=== PATIENT | female | born 1935 | race Caucasian/White ===

== ENCOUNTER 2024-08-03 11:12 | Inpatient (IN) ==
[2024-08-03 11:57] VITALS: BMI 20.5
[2024-08-03 12:13] LABS: BASOPHILS % (AUTO) 0.3 % (0.2-1.0); EOSINOPHILS % (AUTO) 0.2 % (0.9-2.9); HEMATOCRIT 35.2 % (36.0-47.0); HEMOGLOBIN 11.8 g/dL (12.0-16.0); LYMPHOCYTES # (AUTO) 0.5 X10^3/uL (1.3-2.9); LYMPHOCYTES % (AUTO) 3.8 % (21.0-51.0); MEAN CORPUSCULAR HEMOGLOBIN 29.3 pg (27.0-34.0); MEAN CORPUSCULAR HGB CONC 33.6 g/dL (33.0-35.0); MEAN CORPUSCULAR VOLUME 87.1 fL (80.0-100.0); MEAN PLATELET VOLUME 9.7 fL (7.4-11.0); MONOCYTES # (AUTO) 1.1 x10^3/uL (0.3-0.8); MONOCYTES % (AUTO) 8.2 % (0.0-13.0); NEUTROPHILS # (AUTO) 11.8 x10^3/uL (2.2-4.8); NEUTROPHILS % (AUTO) 87.5 % (42.0-75.0); PLATELET COUNT 217 X10^3/uL (150.0-450.0); RED BLOOD COUNT 4.04 X10^6/uL (3.5-5.4); RED CELL DISTRIBUTION WIDTH 14.4 % (11.6-16.5); WHITE BLOOD COUNT 13.5 X10^3/uL (3.6-10.0)
--- NOTE | 2024-08-03 12:32 | CT ---
EXAMINATION:BRAIN W/O CONHISTORY:frequent falls; .COMPARISON STUDY:None.TECHNIQUE:Images were obtained in brain and bone windows. The above CT scan was done with automated exposure control and the mA and kV was adjusted to obtain quality images according to patient size.FINDINGS:There is motion artifact. There is no acute intracranial hemorrhage, midline shift or edema present. There is atrophy and deep white matter ischemic change due to small vessel disease. Larry-white matter differentiation is maintained throughout. There are no intra-axial or extra-axial collections noted. .The sinuses are clear. The mastoid air cells are clear. There is no radiographic evidence of depressed skull fracture. Vascular calcification about the skull base.Hyperostosis frontalis interna.IMPRESSION:No acute intracranial process. 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 .THIS IS AN ELECTRONICALLY VERIFIED FINAL REPORT08/03/2024 12:28 PM - Electronically signed by Apolinar Monterroso MD
[2024-08-03 12:33] LABS: ALANINE AMINOTRANSFERASE 30 Units/L (12-78); ALBUMIN 1.7 g/dL (3.4-5.0); ALKALINE PHOSPHATASE 193 Units/L (46-116); ASPARTATE AMINO TRANSFERASE 69 Units/L (15-37); BLOOD UREA NITROGEN 56 mg/dL (7-18); CALCIUM 9.1 mg/dL (8.5-10.1); CARBON DIOXIDE 26.2 mmol/L (21-32); CHLORIDE 98 mmol/L (98-107); COR CA(FOR HYPOALB) 10.9 mg/dL (8.5-10.1); CREATININE 1.42 mg/dL (0.55-1.02); GLUCOSE 87 mg/dL (65-99); MAGNESIUM 2.6 mg/dL (2.0-2.9); POTASSIUM 5.2 mmol/L (3.5-5.1); SODIUM 132 mmol/L (136-145); TOTAL PROTEIN 6.6 g/dL (6.4-8.2); eGFR NON BLACK RACES 37 (>60)
--- NOTE | 2024-08-03 12:35 | DR.GENAD ---
HPI Time Seen Time Seen by Provider: 08/03/24 12:35 PCP Primary Care Physician: Leon martínez HPI Comment HPI Comment: Patient here with family members. Patient has been getting increasingly weak and stable over the last month. Has had difficulty eating or drinking. Patient had diarrhea about a week ago. She was seen by urologist Wednesday but was unable to make urine. Her blood pressure had been running a little low and was seen by PCP who sent her to the emergency room. Patient has been having some urinary frequency. No fever. Denies dysuria. Denies focal neurologic deficits. Complaint/Symptoms Chief Complaint:: Family states about a month ago she has gotten very weak and has had a increase in falls. Patient has not been eating or drinking very much. Patient also has had diarrhea for about a week now. Wednesday seen urologist was unable to urinate and her bp was low seen pcp this morning and was advised to come to the er. COVID-19 Coronavirus risk:travel/contact w/high risk person: No Has patient experienced Coronavirus symptoms: No Source History Provided: Patient Mode of Arrival Mode of Arrival: Wheelchair Timing Onset of Chief Complaint: 08/01/24 PMH PMH Past Medical History: Yes Past Medical History: Dementia, Dyslipidemia and Hypertension Past Surgical History: Yes Surgical History: Mastectomy and Ortho Surgery Past Surgical History Comment: back, blessnig knee replacement, tubes tied Family History History of Family Medical Conditions: Yes Family Medical History: Hypertension Social History Does patient currently use any type of tobacco product: No Have you used tobacco products in the last 12 months: No Type of Tobacco Use: None Does any household member use tobacco: No Alcohol Use: None Do you use any recreational Drugs:: No Lives With: Alone Lives Where: Home Travel Risk Coronavirus risk:travel/contact w/high risk person: No Has patient experienced Coronavirus symptoms: No Infectious screening In the last 2 months have you had wt loss of >10#?: NO Have you had fever, night sweats or hemotysis?: No Have you traveled outside the country in the last 6 months?: No Isolation: Standard ROS Review of Systems Constitutional: See HPI and Other (Patient slightly confused and history is questionable but possible baseline dementia.); negative Fever Eyes: No Symptoms Reported ENTM: No Symptoms Reported Respiratoy: No Symptoms Reported Cardiovascular: No Symptoms Reported Gastrointestinal/Abdominal: No Symptoms Reported and See HPI (Not eating or drinking well enough, possibly from slightly altered mental status.); negative Abdominal Pain, Constipation, Diarrhea, Nausea or Vomiting Genitourinary: See HPI and Frequency; negative Discharge, Dysuria, Hematuria, Pain or Bleeding Neurological: See HPI and Weakness (Generalized and not focal); negative Headache, Numbness, Paresthesia, Seizure, Tingling, Tremors or Dizziness Musculoskeletal: No Symptoms Reported Integumentary: No Symptoms Reported Hematologic/Lymphatic: No Symptoms Reported Endocrine: No Symptoms Reported Psychiatric: No Symptoms Reported All Other Systems: Reviewed and Negative PE Vital Signs Vitals: Vital Signs Temperature 98.8 F Pulse Rate 93 Pulse Rate 93 Pulse Rate 90 Pulse Rate 98 Pulse Rate 93 Pulse Rate 88 Pulse Rate 96 Pulse Rate 97 Pulse Rate 100 Pulse Rate 98 Pulse Rate 99 Respiratory Rate 22 Respiratory Rate 23 Respiratory Rate 25 Respiratory Rate 24 Respiratory Rate 17 Respiratory Rate 16 Respiratory Rate 33 Respiratory Rate 22 Respiratory Rate 30 Respiratory Rate 23 Respiratory Rate 15 Blood Pressure 126/86 Blood Pressure 112/70 Blood Pressure 107/71 Blood Pressure 125/68 Blood Pressure 114/73 O2 Sat by Pulse Oximetry 97 O2 Sat by Pulse Oximetry 91 O2 Sat by Pulse Oximetry 99 O2 Sat by Pulse Oximetry 97 O2 Sat by Pulse Oximetry 93 O2 Sat by Pulse Oximetry 98 O2 Sat by Pulse Oximetry 100 O2 Sat by Pulse Oximetry 97 General Limitations: No Limitations General Appearance: Alert, In No Apparent Distress and Other (Slightly confused but overall alert and oriented x 3) Head Head Exam: Normal Inspection Eyes Eye exam: Normal Appearance ENT ENT Exam: Normal Exam External Ear Exam: Normal External Inspection TM/Canal Exam: Bilateral: Normal Nose Exam: Normal Nose Exam Mouth Exam: Normal Inspection Throat Exam: Normal Inspection Neck Neck Exam: Normal Inspection Chest Chest Inspection: Normal Inspection Respiratory Respiratory Exam: Normal Lung Sounds Bilat Respiratory Exam: Bilateral: Clear to Auscultation Cardiovascular Cardiovascular Exam: Regular Rate and Normal Rhythm Abdominal Exam Abdominal Exam: Normal Inspection, Normal Bowel Sounds and Soft Extremities Extremities Exam: Normal Inspection Back Back Exam: Normal Inspection Neurologic Neurological Exam: Alert, Oriented X3, CN II-XII Intact and Reflexes Normal; negative Motor Sensory Deficit Psychiatric Psychiatric Exam: Normal Affect and Normal Mood Skin Skin Exam: Warm, Dry, Intact and Normal Color COURSE Treatment Treatment: Patient had some improvement during the stay with fluids and antibiotics. Patient still little weak and confused. Patient's daughters came in and stated that patient has been slightly more confused over the last 2 weeks but possible baseline mild dementia. Family states patient has not been eating or drinking very well and lives independently. They state they are unable to keep her at home and would prefer admission to the hospital discussed results of workup with patient and family. I suspect her symptoms are related to UTI on baseline dementia. Consultation Called: 15:10 Consultation Comments: Discussed case with Dr. Zepeda. He is agreeable to admission [facility] Labs Reviewed 08/03/24 12:05 08/03/24 12:05 Laboratory: WBC 13.5 X10^3/uL (3.6-10.0) H 08/03/24 12:05 RBC 4.04 X10^6/uL (3.5-5.4) 08/03/24 12:05 Hgb 11.8 g/dL (12.0-16.0) L 08/03/24 12:05 Hct 35.2 % (36.0-47.0) L 08/03/24 12:05 MCV 87.1 fL (80.0-100.0) 08/03/24 12:05 MCH 29.3 pg (27.0-34.0) 08/03/24 12:05 MCHC 33.6 g/dL (33.0-35.0) 08/03/24 12:05 RDW 14.4 % (11.6-16.5) 08/03/24 12:05 Plt Count 217 X10^3/uL (150.0-450.0) 08/03/24 12:05 MPV 9.7 fL (7.4-11.0) 08/03/24 12:05 Neut % (Auto) 87.5 % (42.0-75.0) H 08/03/24 12:05 Lymph % (Auto) 3.8 % (21.0-51.0) L 08/03/24 12:05 [place] % (Auto) 8.2 % (0.0-13.0) 08/03/24 12:05 Eos % (Auto) 0.2 % (0.9-2.9) L 08/03/24 12:05 Baso % (Auto) 0.3 % (0.2-1.0) 08/03/24 12:05 Neut # (Auto) 11.8 x10^3/uL (2.2-4.8) H 08/03/24 12:05 Lymph # (Auto) 0.5 X10^3/uL (1.3-2.9) L 08/03/24 12:05 [place] # (Auto) 1.1 x10^3/uL (0.3-0.8) H 08/03/24 12:05 Eos # (Auto) 0.0 x10^3/uL (0.0-0.2) 08/03/24 12:05 Baso # (Auto) 0.0 X10^3/uL (0.0-0.1) 08/03/24 12:05 Absolute Nucleated RBC 0.0 /100WBC 08/03/24 12:05 Sodium 132 mmol/L (136-145) L 08/03/24 12:05 Corrected Sodium TNP 08/03/24 12:05 Potassium 5.2 mmol/L (3.5-5.1) H 08/03/24 12:05 Chloride 98 mmol/L (98-107) 08/03/24 12:05 Carbon Dioxide 26.2 mmol/L (21-32) 08/03/24 12:05 BUN 56 mg/dL (7-18) H 08/03/24 12:05 Creatinine 1.42 mg/dL (0.55-1.02) H 08/03/24 12:05 Est GFR (MDRD) Af Amer 45 (>60) L 08/03/24 12:05 Est GFR (MDRD) Non-Af 37 (>60) L 08/03/24 12:05 Glucose 87 mg/dL (65-99) 08/03/24 12:05 Calcium 9.1 mg/dL (8.5-10.1) 08/03/24 12:05 Corrected Calcium 10.9 mg/dL (8.5-10.1) H 08/03/24 12:05 Magnesium 2.6 mg/dL (2.0-2.9) 08/03/24 12:05 Total Bilirubin 0.80 mg/dL (0.2-1.0) 08/03/24 12:05 AST 69 Units/L (15-37) H 08/03/24 12:05 ALT 30 Units/L (12-78) 08/03/24 12:05 Alkaline Phosphatase 193 Units/L (46-116) H 08/03/24 12:05 Troponin I High Sens 9.4 ng/L (4.0-60.0) 08/03/24 12:05 Total Protein 6.6 g/dL (6.4-8.2) 08/03/24 12:05 Albumin 1.7 g/dL (3.4-5.0) L 08/03/24 12:05 Globulin 4.9 g/dL (2.5-4.5) H 08/03/24 12:05 Albumin/Globulin Ratio 0.3 Ratio (1.1-2.1) L 08/03/24 12:05 Specimen Type Catherized urine 08/03/24 12:31 Urine Color Yellow (YELLOW) 08/03/24 12:31 Urine Appearance Hazy (CLEAR) 08/03/24 12:31 Urine pH 6.0 (5.0 - 8.0) 08/03/24 12:31 Ur Specific [place] 1.025 (1.000-1.030) 08/03/24 12:31 Urine Protein 3+ (NEGATIVE) 08/03/24 12:31 Urine Glucose (UA) Negative (NEGATIVE) 08/03/24 12:31 Urine Ketones Negative (NEGATIVE) 08/03/24 12:31 Urine Blood 5+ (NEGATIVE) 08/03/24 12:31 Urine Nitrite Negative (NEGATIVE) 08/03/24 12:31 Urine Bilirubin Negative (NEGATIVE) 08/03/24 12:31 Urine Urobilinogen Normal (NORMAL) 08/03/24 12:31 Ur Leukocyte Esterase 2+ (NEGATIVE) 08/03/24 12:31 Urine RBC 5-10 /HPF (0-3) A 08/03/24 12:31 Urine WBC 3-5 /HPF (0-5) 08/03/24 12:31 Ur Squamous Epith Cells Few /HPF (NEGATIVE) 08/03/24 12:31 Urine Bacteria 1+ /HPF (NEGATIVE) 08/03/24 12:31 Urine Yeast Few /HPF (NEGATIVE) 08/03/24 12:31 Ur Culture Indicated? No/not indicated 08/03/24 12:31 Opioid Opioid Risk Tool Age (Antoine box if 16-45): No History of Preadolescent Sexual Abuse: No Total: 0 Total Score Risk Category: Low Risk Copyright: [facility] predicting aberrant behaviors Discharge Plan Diagnosis Discharge Problem: Acute UTI, Physical deconditioning Altered mental status Qualifiers: Altered mental status type: unspecified Qualified Code(s): R41.82 - Altered mental status, unspecified Discharge Plan Patient Disposition: ADMITTED INPATIENT Condition: Stable Prescriptions: No Action cyanocobalamin (vitamin B-12) 1,000 mcg tablet extended release 1,000 mcg PO QDAY donepezil 5 mg tablet 2.5 mg PO DAILY divalproex 250 mg tablet,delayed release (DR/EC) 250 mg PO QDAY ciprofloxacin HCl 250 mg tablet 250 mg PO QDAY aspirin 81 mg tablet,delayed release (DR/EC) 81 mg PO QDAY simvastatin 40 mg tablet 40 mg PO QPM metoprolol tartrate 50 mg tablet 50 mg PO BID Xarelto 20 mg tablet 20 mg PO QDAY Gemtesa 75 mg tablet 75 mg PO QDAY phenazopyridine [Pyridium] 100 mg tablet 100 mg PO TID MDD tid Qty: 9 0RF Health Concerns: Post Hospitalization: new medications and changes needed to prevent readmission or further decline. Pt educated and given instructions on all concerns. Plan of Treatment: Continue with present treatment and follow up plan. Pt is to keep follow up appointment as instructed and take medications as ordered. Orders to Discharge Patient Discharge Orders: Transfer (Routine); Ordered 08/03/24 Ordered By: Ozzy Conde Follow ups/Referrals Follow ups/Referrals: SKYE MARTÍNEZ [Primary Care Provider] - 3 days Instructions Stand Alone Forms: Find Help Web Site, Post Hospital Follow Up Care
[2024-08-03] MEDS: NS 1,000 ML IV 1,000 ML IV ONE (12:40)
[2024-08-03 12:46] LABS: BILIRUBIN,URINE NEGATIVE (NEGATIVE); BLOOD/HEMOGLOBIN,URINE 5+ (NEGATIVE); GLUCOSE, URINE NEGATIVE (NEGATIVE); KETONES,URINE NEGATIVE (NEGATIVE); LEUKOCYTE ESTERASE ,URINE 2+ (NEGATIVE); NITRITES,URINE NEGATIVE (NEGATIVE); PROTEIN,URINE 3+ (NEGATIVE); UROBILINOGEN,URINE NORMAL (NORMAL)
[2024-08-03 12:50] LABS: APPEARANCE,URINE HAZY (CLEAR); BACTERIA,URINE 1+ /HPF (NEGATIVE); COLOR,URINE YELLOW (YELLOW); SQUAMOUS EPITHELIAL CELL,UR FEW /HPF (NEGATIVE); YEAST,URINE FEW /HPF (NEGATIVE)
[2024-08-03] MEDS: ROCEPHIN VIAL 1 GRAM IVP ONE (13:04)
[2024-08-03] MEDS: NS 1,000 ML IV 1,000 ML ONE (16:38)
[2024-08-03] MEDS: ROCEPHIN VIAL 1 GRAM ONE (16:38)
[2024-08-03] MEDS ORDERED: BUTT CREAM (COMPOUND) TOP PRN (16:40)
[2024-08-03] MEDS: NS 1,000 ML IV 1,000 ML IV SCH (16:58)
[2024-08-03] MEDS: CIPRO IV 400 MG PREMIX* 400 MG/200 ML IV.SOLN. IV SCH (21:03)
[2024-08-03] MEDS: ARICEPT TAB 5 MG PO SCH (21:06)
[2024-08-03] MEDS: LOPRESSOR TAB 50 MG PO SCH (21:07)
[2024-08-03] MEDS: DEPAKOTE D.R. TAB PO SCH (21:07)
[2024-08-03] MEDS: ZOCOR TAB 40 MG PO SCH (21:07)
[2024-08-04 06:50] LABS: BASOPHILS % (AUTO) 0.2 % (0.2-1.0); EOSINOPHILS % (AUTO) 0.4 % (0.9-2.9); HEMATOCRIT 34.4 % (36.0-47.0); HEMOGLOBIN 11.4 g/dL (12.0-16.0); LYMPHOCYTES # (AUTO) 0.5 X10^3/uL (1.3-2.9); LYMPHOCYTES % (AUTO) 3.9 % (21.0-51.0); MEAN CORPUSCULAR HGB CONC 33.2 g/dL (33.0-35.0); MEAN CORPUSCULAR VOLUME 87.2 fL (80.0-100.0); MEAN PLATELET VOLUME 9.3 fL (7.4-11.0); MONOCYTES # (AUTO) 0.9 x10^3/uL (0.3-0.8); MONOCYTES % (AUTO) 7.6 % (0.0-13.0); NEUTROPHILS # (AUTO) 10.4 x10^3/uL (2.2-4.8); NEUTROPHILS % (AUTO) 87.9 % (42.0-75.0); PLATELET COUNT 238 X10^3/uL (150.0-450.0); RED BLOOD COUNT 3.95 X10^6/uL (3.5-5.4); RED CELL DISTRIBUTION WIDTH 14.4 % (11.6-16.5); WHITE BLOOD COUNT 11.8 X10^3/uL (3.6-10.0)
[2024-08-04 07:05] LABS: ALANINE AMINOTRANSFERASE 29 Units/L (12-78); ALBUMIN 1.6 g/dL (3.4-5.0); ALKALINE PHOSPHATASE 188 Units/L (46-116); ASPARTATE AMINO TRANSFERASE 57 Units/L (15-37); BLOOD UREA NITROGEN 40 mg/dL (7-18); CALCIUM 8.5 mg/dL (8.5-10.1); CARBON DIOXIDE 24.2 mmol/L (21-32); CHLORIDE 100 mmol/L (98-107); COR CA(FOR HYPOALB) 10.4 mg/dL (8.5-10.1); CREATININE 0.95 mg/dL (0.55-1.02); GLUCOSE 70 mg/dL (65-99); POTASSIUM 4.1 mmol/L (3.5-5.1); SODIUM 133 mmol/L (136-145); TOTAL PROTEIN 6.3 g/dL (6.4-8.2); eGFR NON BLACK RACES 59 (>60)
[2024-08-04] MEDS: ASPIRIN EC 81 MG PO SCH (09:11)
[2024-08-04] MEDS: XARELTO PO SCH (09:11)
[2024-08-04] MEDS: VISBIOME PROBIOTIC CAP 112.5 B or equivalent PO SCH (09:11)
[2024-08-04] MEDS: PATIENT'S HOME MEDICATION (Vibegron [Gemtesa] 75 mg tablet) PO SCH (09:12)
--- NOTE | 2024-08-04 14:24 | DR.H&P ---
H&P History & Physical for Day of: H&P Date: 08/04/24 Chief Complaint Chief Complaint: UTI History of Present Illness History of Present Illness: Patient with worsening function over the last month. Daughter reports that she has had 3 falls over the last month with 2 this week. Couple of the falls occurred when trying to get into her bathroom which involves a step down. Brought to the ER for evaluation due to worsening mental status and weakness. Found to have an acute kidney injury, leukocytosis, mild tachycardia, and symptoms of UTI. She is currently on IV fluids and IV Cipro. Feels much better today but still weak in the legs. Physical therapy has evaluated her and they do not recommend her going home. Her and her daughters have agreed for her to go to subacute rehab. ROS: 12 point ROS otherwise negative. PE: Elderly female in no acute distress. Hearing intact conversation. Voice is soft but clear. Head NCAT. EOMI. Heart regular rate and rhythm. Lungs are clear. Belly is soft and nontender with bowel sounds present. Able to move all extremities but the legs are very weak even given her age. Past Medical History Past Medical History: Dementia, Dyslipidemia and Hypertension Past Surgical History Surgical History: Mastectomy and Ortho Surgery Family History Family Medical History: Hypertension Social History Does patient currently use any type of tobacco product: No Have you used tobacco products in the last 12 months: No Type of Tobacco Use: None Does any household member use tobacco: No Alcohol Use: None Drug Use: None Medications Home Medications: Home Medications Medication Instructions Recorded Confirmed Type cyanocobalamin (vitamin B-12) 1,000 mcg PO QDAY 03/17/24 08/03/24 History 1,000 mcg tablet,extended release divalproex 250 mg tablet,delayed 250 mg PO HS 03/17/24 08/03/24 History release donepezil 5 mg tablet 5 mg PO HS 03/17/24 08/03/24 History metoprolol tartrate 50 mg tablet 50 mg PO BID 03/17/24 08/03/24 History rivaroxaban 20 mg tablet (Xarelto) 20 mg PO QDAY 03/17/24 08/03/24 History simvastatin 40 mg tablet 40 mg PO QPM 03/17/24 08/03/24 History vibegron 75 mg tablet (Gemtesa) 75 mg PO QDAY 03/17/24 08/03/24 History aspirin 81 mg tablet,delayed 81 mg PO QDAY 08/03/24 08/03/24 History release ciprofloxacin HCl 250 mg tablet 250 mg PO QPM 08/03/24 08/03/24 History Allergies Allergies Allergy/AdvReac Type Severity Reaction Status Date / Time No Known Allergies Allergy Verified 08/03/24 11:25 Labs 08/04/24 06:28 08/04/24 06:28 Labs: 08/03/24 12:31 Urine,Clean Catch Urine Culture - Preliminary Laboratory WBC 11.8 X10^3/uL (3.6-10.0) H 08/04/24 06:28 RBC 3.95 X10^6/uL (3.5-5.4) 08/04/24 06: Hgb 11.4 g/dL (12.0-16.0) L 08/04/24 06:28 Hct 34.4 % (36.0-47.0) L 08/04/24 06:28 MCV 87.2 fL (80.0-100.0) 08/04/24 06:28 MCH 29.0 pg (27.0-34.0) 08/04/24 06:28 MCHC 33.2 g/dL (33.0-35.0) 08/04/24 06:28 RDW 14.4 % (11.6-16.5) 08/04/24 06: Plt Count 238 X10^3/uL (150.0-450.0) 08/04/24 06:28 MPV 9.3 fL (7.4-11.0) 08/04/24 06:28 Neut % (Auto) 87.9 % (42.0-75.0) H 08/04/24 06:28 Lymph % (Auto) 3.9 % (21.0-51.0) L 08/04/24 06: [place] % (Auto) 7.6 % (0.0-13.0) 08/04/24 06: Eos % (Auto) 0.4 % (0.9-2.9) L 08/04/24 06:28 Baso % (Auto) 0.2 % (0.2-1.0) 08/04/24 06:28 Neut # (Auto) 10.4 x10^3/uL (2.2-4.8) H 08/04/24 06:28 Lymph # (Auto) 0.5 X10^3/uL (1.3-2.9) L 08/04/24 06:28 [place] # (Auto) 0.9 x10^3/uL (0.3-0.8) H 08/04/24 06:28 Eos # (Auto) 0.0 x10^3/uL (0.0-0.2) 08/04/24 06:28 Baso # (Auto) 0.0 X10^3/uL (0.0-0.1) 08/04/24 06:28 Absolute Nucleated RBC 0.0 /100WBC 08/04/24 06:28 Sodium 133 mmol/L (136-145) L 08/04/24 06:28 Corrected Sodium TNP 08/04/24 06:28 Potassium 4.1 mmol/L (3.5-5.1) 08/04/24 06:28 Chloride 100 mmol/L (98-107) 08/04/24 06:28 Carbon Dioxide 24.2 mmol/L (21-32) 08/04/24 06:28 BUN 40 mg/dL (7-18) H 08/04/24 06:28 Creatinine 0.95 mg/dL (0.55-1.02) 08/04/24 06:28 Est GFR (MDRD) Af Amer > 60 (>60) 08/04/24 06:28 Est GFR (MDRD) Non-Af 59 (>60) 08/04/24 06:28 Glucose 70 mg/dL (65-99) 08/04/24 06:28 Calcium 8.5 mg/dL (8.5-10.1) 08/04/24 06:28 Corrected Calcium 10.4 mg/dL (8.5-10.1) H 08/04/24 06:28 Magnesium 2.6 mg/dL (2.0-2.9) 08/03/24 12:05 Total Bilirubin 0.70 mg/dL (0.2-1.0) 08/04/24 06:28 AST 57 Units/L (15-37) H 08/04/24 06:28 ALT 29 Units/L (12-78) 08/04/24 06:28 Alkaline Phosphatase 188 Units/L (46-116) H 08/04/24 06:28 Troponin I High Sens 9.4 ng/L (4.0-60.0) 08/03/24 12:05 Total Protein 6.3 g/dL (6.4-8.2) L 08/04/24 06:28 Albumin 1.6 g/dL (3.4-5.0) L 08/04/24 06:28 Globulin 4.7 g/dL (2.5-4.5) H 08/04/24 06:28 Albumin/Globulin Ratio 0.3 Ratio (1.1-2.1) L 08/04/24 06:28 Specimen Type Catherized urine 08/03/24 12:31 Urine Color Yellow (YELLOW) 08/03/24 12:31 Urine Appearance Hazy (CLEAR) 08/03/24 12:31 Urine pH 6.0 (5.0 - 8.0) 08/03/24 12:31 Ur Specific [place] 1.025 (1.000-1.030) 08/03/24 12:31 Urine Protein 3+ (NEGATIVE) 08/03/24 12:31 Urine Glucose (UA) Negative (NEGATIVE) 08/03/24 12:31 Urine Ketones Negative (NEGATIVE) 08/03/24 12:31 Urine Blood 5+ (NEGATIVE) 08/03/24 12:31 Urine Nitrite Negative (NEGATIVE) 08/03/24 12:31 Urine Bilirubin Negative (NEGATIVE) 08/03/24 12:31 Urine Urobilinogen Normal (NORMAL) 08/03/24 12:31 Ur Leukocyte Esterase 2+ (NEGATIVE) 08/03/24 12:31 Urine RBC 5-10 /HPF (0-3) A 08/03/24 12:31 Urine WBC 3-5 /HPF (0-5) 08/03/24 12:31 Ur Squamous Epith Cells Few /HPF (NEGATIVE) 08/03/24 12:31 Urine Bacteria 1+ /HPF (NEGATIVE) 08/03/24 12:31 Urine Yeast Few /HPF (NEGATIVE) 08/03/24 12:31 Ur Culture Indicated? No/not indicated 08/03/24 12:31 Physical Exam Vital Signs: Vital Signs Temperature 98.0 F Temperature 98.1 F Pulse Rate [Brachial] 109 Pulse Rate [Brachial] 108 Respiratory Rate 19 Respiratory Rate 18 Blood Pressure [Left Arm] 124/78 Blood Pressure [Left Arm] 127/80 O2 Sat by Pulse Oximetry 100 O2 Sat by Pulse Oximetry 99 Assessment/Plan (1) Acute UTI: Narrative Support Text: Continue IV fluids and IV Cipro. Status: Acute (2) Altered mental status: Qualifiers: Altered mental status type: unspecified Qualified Code(s): R41.82 - Altered mental status, unspecified Narrative Support Text: Resolved Status: Acute (3) Sepsis: Qualifiers: Acute renal failure type: with acute tubular necrosis Sepsis acute organ dysfunction status: with acute organ dysfunction Sepsis type: sepsis due to unspecified organism Severe sepsis acute organ dysfunction type: acute renal failure Severe sepsis shock status: without septic shock Qualified Code(s): A41.9 - Sepsis, unspecified organism; R65.20 - Severe sepsis without septic shock; N17.0 - Acute kidney failure with tubular necrosis Narrative Support Text: Continue per above. Culture pending. Status: Acute (4) Physical deconditioning: Narrative Support Text: Plan for subacute rehab placement. Status: Acute
[2024-08-05 07:12] LABS: BASOPHILS # (AUTO) 0.1 X10^3/uL (0.0-0.1); BASOPHILS % (AUTO) 1.1 % (0.2-1.0); EOSINOPHILS # (AUTO) 0.1 x10^3/uL (0.0-0.2); EOSINOPHILS % (AUTO) 0.5 % (0.9-2.9); HEMATOCRIT 31.7 % (36.0-47.0); HEMOGLOBIN 10.7 g/dL (12.0-16.0); LYMPHOCYTES # (AUTO) 0.4 X10^3/uL (1.3-2.9); LYMPHOCYTES % (AUTO) 3.7 % (21.0-51.0); MEAN CORPUSCULAR HEMOGLOBIN 29.1 pg (27.0-34.0); MEAN CORPUSCULAR HGB CONC 33.8 g/dL (33.0-35.0); MEAN CORPUSCULAR VOLUME 85.9 fL (80.0-100.0); MEAN PLATELET VOLUME 9.3 fL (7.4-11.0); NEUTROPHILS # (AUTO) 10.4 x10^3/uL (2.2-4.8); NEUTROPHILS % (AUTO) 86.7 % (42.0-75.0); PLATELET COUNT 238 X10^3/uL (150.0-450.0); RED BLOOD COUNT 3.69 X10^6/uL (3.5-5.4); RED CELL DISTRIBUTION WIDTH 14.3 % (11.6-16.5)
[2024-08-05 07:32] LABS: ALANINE AMINOTRANSFERASE 20 Units/L (12-78); ALBUMIN 1.3 g/dL (3.4-5.0); ALKALINE PHOSPHATASE 169 Units/L (46-116); ASPARTATE AMINO TRANSFERASE 52 Units/L (15-37); BLOOD UREA NITROGEN 25 mg/dL (7-18); CALCIUM 8.3 mg/dL (8.5-10.1); CHLORIDE 102 mmol/L (98-107); COR CA(FOR HYPOALB) 10.5 mg/dL (8.5-10.1); CREATININE 0.73 mg/dL (0.55-1.02); GLUCOSE 61 mg/dL (65-99); POTASSIUM 3.9 mmol/L (3.5-5.1); SODIUM 133 mmol/L (136-145); TOTAL PROTEIN 5.5 g/dL (6.4-8.2); eGFR NON BLACK RACES > 60 (>60)
--- NOTE | 2024-08-05 11:31 | PCM.PROG ---
Progress Note Progress Note for Day of Date of Exam: 08/05/24 Subjective Subjective: Patient is a 89-year-old female admitted for acute cystitis, altered mental status, and physical deconditioning. This morning, she is resting comfortably in bed. No acute events overnight. Labs/imaging: WBC 12, hemoglobin 10.7, platelets 238, sodium 133, potassium 3.9, creatinine 0.73, gl ucose 61. Patient is currently on IV Ciprofloxacillin. Urine cultures pending. Plan to continue with IV antibiotics. Otherwise continue with current treatment plan. Continue closely monitor and follow-up labs. Past Medical Family Social History Allergies: Allergies No Known Allergies Allergy (Verified 08/03/24 11:25) Review of Systems ROS changes noted: see HPI Vital Signs and I&O's Vital Signs: Vital Signs Temperature 98.3 F Temperature 98.3 F Pulse Rate [Brachial] 107 Pulse Rate [Brachial] 94 Respiratory Rate 17 Respiratory Rate 21 Blood Pressure [Left Arm] 131/80 Blood Pressure [Left Arm] 167/76 O2 Sat by Pulse Oximetry 96 O2 Sat by Pulse Oximetry 96 Intake and Output: Intake & Output 08/02/24 08/03/24 08/04/24 08/05/24 23:59 23:59 23:59 23:59 Intake Total 524 / 524 961 / 961 Balance 524 / 524 961 / 961 Physical Exam Oriented: Normal Eyes: Normal Ear: Normal Nose: Normal Respiratory: Normal Cardiovascular: Normal : Normal Auscultation: Bowel Sounds: Normal Palpation: Normal Tenderness: Normal Skin: Normal Speech Pattern: Clear and Appropriate Laboratory and Diagnostics 08/05/24 06:02 08/05/24 06:02 Labs: 08/03/24 12:31 Urine,Clean Catch Urine Culture - Final Laboratory WBC 12.0 X10^3/uL (3.6-10.0) H 08/05/24 06:02 RBC 3.69 X10^6/uL (3.5-5.4) 08/05/24 06:02 Hgb 10.7 g/dL (12.0-16.0) L 08/05/24 06:02 Hct 31.7 % (36.0-47.0) L 08/05/24 06:02 MCV 85.9 fL (80.0-100.0) 08/05/24 06:02 MCH 29.1 pg (27.0-34.0) 08/05/24 06:02 MCHC 33.8 g/dL (33.0-35.0) 08/05/24 06:02 RDW 14.3 % (11.6-16.5) 08/05/24 06:02 Plt Count 238 X10^3/uL (150.0-450.0) 08/05/24 06:02 MPV 9.3 fL (7.4-11.0) 08/05/24 06:02 Neut % (Auto) 86.7 % (42.0-75.0) H 08/05/24 06:02 Lymph % (Auto) 3.7 % (21.0-51.0) L 08/05/24 06:02 [place] % (Auto) 8.0 % (0.0-13.0) 08/05/24 06:02 Eos % (Auto) 0.5 % (0.9-2.9) L 08/05/24 06:02 Baso % (Auto) 1.1 % (0.2-1.0) H 08/05/24 06:02 Neut # (Auto) 10.4 x10^3/uL (2.2-4.8) H 08/05/24 06:02 Lymph # (Auto) 0.4 X10^3/uL (1.3-2.9) L 08/05/24 06:02 [place] # (Auto) 1.0 x10^3/uL (0.3-0.8) H 08/05/24 06:02 Eos # (Auto) 0.1 x10^3/uL (0.0-0.2) 08/05/24 06:02 Baso # (Auto) 0.1 X10^3/uL (0.0-0.1) 08/05/24 06:02 Absolute Nucleated RBC 0.0 /100WBC 08/05/24 06:02 Sodium 133 mmol/L (136-145) L 08/05/24 06:02 Corrected Sodium TNP 08/05/24 06:02 Potassium 3.9 mmol/L (3.5-5.1) 08/05/24 06:02 Chloride 102 mmol/L (98-107) 08/05/24 06:02 Carbon Dioxide 24.0 mmol/L (21-32) 08/05/24 06:02 BUN 25 mg/dL (7-18) H 08/05/24 06:02 Creatinine 0.73 mg/dL (0.55-1.02) 08/05/24 06:02 Est GFR (MDRD) Af Amer > 60 (>60) 08/05/24 06:02 Est GFR (MDRD) Non-Af > 60 (>60) 08/05/24 06:02 Glucose 61 mg/dL (65-99) L 08/05/24 06:02 Calcium 8.3 mg/dL (8.5-10.1) L 08/05/24 06:02 Corrected Calcium 10.5 mg/dL (8.5-10.1) H 08/05/24 06:02 Magnesium 2.6 mg/dL (2.0-2.9) 08/03/24 12:05 Total Bilirubin 0.70 mg/dL (0.2-1.0) 08/05/24 06:02 AST 52 Units/L (15-37) H 08/05/24 06:02 ALT 20 Units/L (12-78) 08/05/24 06:02 Alkaline Phosphatase 169 Units/L (46-116) H 08/05/24 06:02 Troponin I High Sens 9.4 ng/L (4.0-60.0) 08/03/24 12:05 Total Protein 5.5 g/dL (6.4-8.2) L 08/05/24 06:02 Albumin 1.3 g/dL (3.4-5.0) L 08/05/24 06:02 Globulin 4.2 g/dL (2.5-4.5) 08/05/24 06:02 Albumin/Globulin Ratio 0.3 Ratio (1.1-2.1) L 08/05/24 06:02 Specimen Type Catherized urine 08/03/24 12:31 Urine Color Yellow (YELLOW) 08/03/24 12:31 Urine Appearance Hazy (CLEAR) 08/03/24 12:31 Urine pH 6.0 (5.0 - 8.0) 08/03/24 12:31 Ur Specific [place] 1.025 (1.000-1.030) 08/03/24 12:31 Urine Protein 3+ (NEGATIVE) 08/03/24 12:31 Urine Glucose (UA) Negative (NEGATIVE) 08/03/24 12:31 Urine Ketones Negative (NEGATIVE) 08/03/24 12:31 Urine Blood 5+ (NEGATIVE) 08/03/24 12:31 Urine Nitrite Negative (NEGATIVE) 08/03/24 12:31 Urine Bilirubin Negative (NEGATIVE) 08/03/24 12:31 Urine Urobilinogen Normal (NORMAL) 08/03/24 12:31 Ur Leukocyte Esterase 2+ (NEGATIVE) 08/03/24 12:31 Urine RBC 5-10 /HPF (0-3) A 08/03/24 12:31 Urine WBC 3-5 /HPF (0-5) 08/03/24 12:31 Ur Squamous Epith Cells Few /HPF (NEGATIVE) 08/03/24 12:31 Urine Bacteria 1+ /HPF (NEGATIVE) 08/03/24 12:31 Urine Yeast Few /HPF (NEGATIVE) 08/03/24 12:31 Ur Culture Indicated? No/not indicated 08/03/24 12:31 Plan (1) Acute UTI: Status: Acute (2) Altered mental status: Status: Acute Qualifiers: Altered mental status type: unspecified Qualified Code(s): R41.82 - Altered mental status, unspecified (3) Sepsis: Status: Acute Qualifiers: Sepsis type: sepsis due to unspecified organism Sepsis acute organ dysfunction status: with acute organ dysfunction Severe sepsis acute organ dysfunction type: acute renal failure Acute renal failure type: with acute tubular necrosis Severe sepsis shock status: without septic shock Qualified Code(s): A41.9 - Sepsis, unspecified organism; R65.20 - Severe sepsis without septic shock; N17.0 - Acute kidney failure with tubular necrosis (4) Physical deconditioning: Status: Acute
[2024-08-06 06:41] LABS: BASOPHILS % (AUTO) 0.2 % (0.2-1.0); EOSINOPHILS # (AUTO) 0.1 x10^3/uL (0.0-0.2); EOSINOPHILS % (AUTO) 0.6 % (0.9-2.9); HEMOGLOBIN 11.5 g/dL (12.0-16.0); LYMPHOCYTES # (AUTO) 0.6 X10^3/uL (1.3-2.9); LYMPHOCYTES % (AUTO) 4.6 % (21.0-51.0); MEAN CORPUSCULAR HEMOGLOBIN 29.2 pg (27.0-34.0); MEAN CORPUSCULAR HGB CONC 33.7 g/dL (33.0-35.0); MEAN CORPUSCULAR VOLUME 86.7 fL (80.0-100.0); MONOCYTES # (AUTO) 1.4 x10^3/uL (0.3-0.8); MONOCYTES % (AUTO) 10.2 % (0.0-13.0); NEUTROPHILS # (AUTO) 11.5 x10^3/uL (2.2-4.8); NEUTROPHILS % (AUTO) 84.4 % (42.0-75.0); PLATELET COUNT 206 X10^3/uL (150.0-450.0); RED BLOOD COUNT 3.92 X10^6/uL (3.5-5.4); RED CELL DISTRIBUTION WIDTH 14.3 % (11.6-16.5); WHITE BLOOD COUNT 13.6 X10^3/uL (3.6-10.0)
[2024-08-06 06:59] LABS: ALANINE AMINOTRANSFERASE 20 Units/L (12-78); ALBUMIN 1.2 g/dL (3.4-5.0); ALKALINE PHOSPHATASE 174 Units/L (46-116); ASPARTATE AMINO TRANSFERASE 53 Units/L (15-37); BLOOD UREA NITROGEN 20 mg/dL (7-18); CALCIUM 8.3 mg/dL (8.5-10.1); CARBON DIOXIDE 20.2 mmol/L (21-32); CHLORIDE 104 mmol/L (98-107); COR CA(FOR HYPOALB) 10.5 mg/dL (8.5-10.1); CREATININE 0.67 mg/dL (0.55-1.02); GLUCOSE 65 mg/dL (65-99); POTASSIUM 4.1 mmol/L (3.5-5.1); SODIUM 133 mmol/L (136-145); TOTAL PROTEIN 5.3 g/dL (6.4-8.2); eGFR NON BLACK RACES > 60 (>60)
--- NOTE | 2024-08-06 11:11 | PCM.PROG ---
Progress Note Progress Note for Day of Date of Exam: 08/06/24 Subjective Subjective: Patient is a 89-year-old female admitted for acute cystitis, altered mental status, and physical deconditioning. This morning, she is sitting in recliner. No acute events overnight. She reports improvement in her symptoms. Labs/imaging: WBC 13.6, hemoglobin 11.5, platelets 206, sodium 133, potassium 4.1, creatinine 0.67, glucose 65. Patient is currently on IV Ciprofloxacillin. Urine cultures pending. Plan to continue with IV antibiotics. Patient does have some bilateral pitting lower extremity edema. Will decrease IV fluids to help with swelling and encourage nutrition. Otherwise continue with current treatment plan. Continue closely monitor and follow-up labs. Past Medical Family Social History Allergies: Allergies No Known Allergies Allergy (Verified 08/03/24 11:25) Review of Systems ROS changes noted: see HPI Vital Signs and I&O's Vital Signs: Vital Signs Temperature 97.3 F Temperature 97.9 F Pulse Rate [Brachial] 98 Pulse Rate [Brachial] 123 Respiratory Rate 19 Respiratory Rate 21 Blood Pressure [Left Arm] 139/83 Blood Pressure [Left Arm] 172/96 O2 Sat by Pulse Oximetry 98 O2 Sat by Pulse Oximetry 95 Intake and Output: Intake & Output 08/03/24 08/04/24 08/05/24 08/06/24 23:59 23:59 23:59 23:59 Intake Total 524 / 524 3719 / 3719 1152 / 1152 Balance 524 / 524 3719 / 3719 1152 / 1152 Physical Exam Oriented: Normal Eyes: Normal Ear: Normal Nose: Normal Respiratory: Normal Cardiovascular: Normal : Normal Auscultation: Bowel Sounds: Normal Tenderness: Normal Skin: Normal Speech Pattern: Clear and Appropriate Laboratory and Diagnostics 08/06/24 06:20 08/06/24 06:20 Labs: 08/03/24 12:31 Urine,Clean Catch Urine Culture - Final Laboratory WBC 13.6 X10^3/uL (3.6-10.0) H 08/06/24 06:20 RBC 3.92 X10^6/uL (3.5-5.4) 08/06/24 06:20 Hgb 11.5 g/dL (12.0-16.0) L 08/06/24 06:20 Hct 34.0 % (36.0-47.0) L 08/06/24 06:20 MCV 86.7 fL (80.0-100.0) 08/06/24 06:20 MCH 29.2 pg (27.0-34.0) 08/06/24 06:20 MCHC 33.7 g/dL (33.0-35.0) 08/06/24 06:20 RDW 14.3 % (11.6-16.5) 08/06/24 06:20 Plt Count 206 X10^3/uL (150.0-450.0) 08/06/24 06:20 MPV 9.0 fL (7.4-11.0) 08/06/24 06:20 Neut % (Auto) 84.4 % (42.0-75.0) H 08/06/24 06:20 Lymph % (Auto) 4.6 % (21.0-51.0) L 08/06/24 06:20 [place] % (Auto) 10.2 % (0.0-13.0) 08/06/24 06:20 Eos % (Auto) 0.6 % (0.9-2.9) L 08/06/24 06:20 Baso % (Auto) 0.2 % (0.2-1.0) 08/06/24 06:20 Neut # (Auto) 11.5 x10^3/uL (2.2-4.8) H 08/06/24 06:20 Lymph # (Auto) 0.6 X10^3/uL (1.3-2.9) L 08/06/24 06:20 [place] # (Auto) 1.4 x10^3/uL (0.3-0.8) H 08/06/24 06:20 Eos # (Auto) 0.1 x10^3/uL (0.0-0.2) 08/06/24 06:20 Baso # (Auto) 0.0 X10^3/uL (0.0-0.1) 08/06/24 06:20 Absolute Nucleated RBC 0.0 /100WBC 08/06/24 06:20 Sodium 133 mmol/L (136-145) L 08/06/24 06:20 Corrected Sodium TNP 08/06/24 06:20 Potassium 4.1 mmol/L (3.5-5.1) 08/06/24 06:20 Chloride 104 mmol/L (98-107) 08/06/24 06:20 Carbon Dioxide 20.2 mmol/L (21-32) L 08/06/24 06:20 BUN 20 mg/dL (7-18) H 08/06/24 06:20 Creatinine 0.67 mg/dL (0.55-1.02) 08/06/24 06:20 Est GFR (MDRD) Af Amer > 60 (>60) 08/06/24 06:20 Est GFR (MDRD) Non-Af > 60 (>60) 08/06/24 06:20 Glucose 65 mg/dL (65-99) 08/06/24 06:20 Calcium 8.3 mg/dL (8.5-10.1) L 08/06/24 06:20 Corrected Calcium 10.5 mg/dL (8.5-10.1) H 08/06/24 06:20 Magnesium 2.6 mg/dL (2.0-2.9) 08/03/24 12:05 Total Bilirubin 0.80 mg/dL (0.2-1.0) 08/06/24 06:20 AST 53 Units/L (15-37) H 08/06/24 06:20 ALT 20 Units/L (12-78) 08/06/24 06:20 Alkaline Phosphatase 174 Units/L (46-116) H 08/06/24 06:20 Troponin I High Sens 9.4 ng/L (4.0-60.0) 08/03/24 12:05 Total Protein 5.3 g/dL (6.4-8.2) L 08/06/24 06:20 Albumin 1.2 g/dL (3.4-5.0) L 08/06/24 06:20 Globulin 4.1 g/dL (2.5-4.5) 08/06/24 06:20 Albumin/Globulin Ratio 0.3 Ratio (1.1-2.1) L 08/06/24 06:20 Specimen Type Catherized urine 08/03/24 12:31 Urine Color Yellow (YELLOW) 08/03/24 12:31 Urine Appearance Hazy (CLEAR) 08/03/24 12:31 Urine pH 6.0 (5.0 - 8.0) 08/03/24 12:31 Ur Specific [place] 1.025 (1.000-1.030) 08/03/24 12:31 Urine Protein 3+ (NEGATIVE) 08/03/24 12:31 Urine Glucose (UA) Negative (NEGATIVE) 08/03/24 12:31 Urine Ketones Negative (NEGATIVE) 08/03/24 12:31 Urine Blood 5+ (NEGATIVE) 08/03/24 12:31 Urine Nitrite Negative (NEGATIVE) 08/03/24 12:31 Urine Bilirubin Negative (NEGATIVE) 08/03/24 12:31 Urine Urobilinogen Normal (NORMAL) 08/03/24 12:31 Ur Leukocyte Esterase 2+ (NEGATIVE) 08/03/24 12:31 Urine RBC 5-10 /HPF (0-3) A 08/03/24 12:31 Urine WBC 3-5 /HPF (0-5) 08/03/24 12:31 Ur Squamous Epith Cells Few /HPF (NEGATIVE) 08/03/24 12:31 Urine Bacteria 1+ /HPF (NEGATIVE) 08/03/24 12:31 Urine Yeast Few /HPF (NEGATIVE) 08/03/24 12:31 Ur Culture Indicated? No/not indicated 08/03/24 12:31 Plan (1) Acute UTI: Status: Acute (2) Altered mental status: Status: Acute Qualifiers: Altered mental status type: unspecified Qualified Code(s): R41.82 - Altered mental status, unspecified (3) Sepsis: Status: Acute Qualifiers: Sepsis type: sepsis due to unspecified organism Sepsis acute organ dysfunction status: with acute organ dysfunction Severe sepsis acute organ dysfunction type: acute renal failure Acute renal failure type: with acute tubular necrosis Severe sepsis shock status: without septic shock Qualified Code(s): A41.9 - Sepsis, unspecified organism; R65.20 - Severe sepsis without septic shock; N17.0 - Acute kidney failure with tubular necrosis (4) Physical deconditioning: Status: Acute
[2024-08-06] MEDS: NS 1,000 ML IV 1,000 ML IV SCH (12:14)
[2024-08-06] MEDS ORDERED: CONSULT PHARMACY - POTASSIUM & MAGNESIUM XX SCH (18:00)
[2024-08-06] MEDS: MAG-OX TAB PO SCH (18:17)
[2024-08-07 06:01] LABS: BASOPHILS # (AUTO) 0.1 X10^3/uL (0.0-0.1); BASOPHILS % (AUTO) 0.4 % (0.2-1.0); EOSINOPHILS # (AUTO) 0.1 x10^3/uL (0.0-0.2); EOSINOPHILS % (AUTO) 0.7 % (0.9-2.9); HEMATOCRIT 32.4 % (36.0-47.0); HEMOGLOBIN 10.7 g/dL (12.0-16.0); LYMPHOCYTES # (AUTO) 0.8 X10^3/uL (1.3-2.9); LYMPHOCYTES % (AUTO) 5.1 % (21.0-51.0); MEAN CORPUSCULAR HEMOGLOBIN 28.7 pg (27.0-34.0); MEAN CORPUSCULAR HGB CONC 32.9 g/dL (33.0-35.0); MEAN CORPUSCULAR VOLUME 87.3 fL (80.0-100.0); MEAN PLATELET VOLUME 9.2 fL (7.4-11.0); MONOCYTES # (AUTO) 1.5 x10^3/uL (0.3-0.8); MONOCYTES % (AUTO) 10.2 % (0.0-13.0); NEUTROPHILS # (AUTO) 12.4 x10^3/uL (2.2-4.8); NEUTROPHILS % (AUTO) 83.6 % (42.0-75.0); PLATELET COUNT 204 X10^3/uL (150.0-450.0); RED BLOOD COUNT 3.72 X10^6/uL (3.5-5.4); RED CELL DISTRIBUTION WIDTH 14.5 % (11.6-16.5); WHITE BLOOD COUNT 14.9 X10^3/uL (3.6-10.0)
[2024-08-07 06:12] LABS: ALANINE AMINOTRANSFERASE 23 Units/L (12-78); ALBUMIN 1.2 g/dL (3.4-5.0); ALKALINE PHOSPHATASE 192 Units/L (46-116); ASPARTATE AMINO TRANSFERASE 56 Units/L (15-37); BLOOD UREA NITROGEN 17 mg/dL (7-18); CARBON DIOXIDE 21.6 mmol/L (21-32); CHLORIDE 104 mmol/L (98-107); COR CA(FOR HYPOALB) 10.2 mg/dL (8.5-10.1); CREATININE 0.73 mg/dL (0.55-1.02); GLUCOSE 78 mg/dL (65-99); MAGNESIUM 1.7 mg/dL (2.0-2.9); POTASSIUM 3.8 mmol/L (3.5-5.1); SODIUM 133 mmol/L (136-145); TOTAL PROTEIN 5.1 g/dL (6.4-8.2); eGFR NON BLACK RACES > 60 (>60)
[2024-08-07] MEDS ORDERED: CONSULT PHARMACY - POTASSIUM & MAGNESIUM XX SCH (07:00)
[2024-08-07] MEDS: MAG-OX TAB PO SCH (10:17)
[2024-08-07] MEDS: LOPRESSOR TAB 50 MG PO SCH (10:17)
[2024-08-07] MEDS: K-DUR TAB 20 MEQ PO SCH (10:17)
[2024-08-07] MEDS: MAGNESIUM SULFATE 1 GRAM/100 mL PREMIX 1 G/100 ML BAG IV ONE (13:27)
[2024-08-08 06:18] LABS: BASOPHILS % (AUTO) 0.4 % (0.2-1.0); EOSINOPHILS # (AUTO) 0.1 x10^3/uL (0.0-0.2); EOSINOPHILS % (AUTO) 0.6 % (0.9-2.9); HEMATOCRIT 35.3 % (36.0-47.0); HEMOGLOBIN 11.8 g/dL (12.0-16.0); LYMPHOCYTES # (AUTO) 0.5 X10^3/uL (1.3-2.9); LYMPHOCYTES % (AUTO) 3.7 % (21.0-51.0); MEAN CORPUSCULAR HEMOGLOBIN 29.2 pg (27.0-34.0); MEAN CORPUSCULAR HGB CONC 33.4 g/dL (33.0-35.0); MEAN CORPUSCULAR VOLUME 87.2 fL (80.0-100.0); MEAN PLATELET VOLUME 9.1 fL (7.4-11.0); MONOCYTES # (AUTO) 1.2 x10^3/uL (0.3-0.8); MONOCYTES % (AUTO) 8.5 % (0.0-13.0); NEUTROPHILS # (AUTO) 12.4 x10^3/uL (2.2-4.8); NEUTROPHILS % (AUTO) 86.8 % (42.0-75.0); PLATELET COUNT 221 X10^3/uL (150.0-450.0); RED BLOOD COUNT 4.04 X10^6/uL (3.5-5.4); RED CELL DISTRIBUTION WIDTH 14.8 % (11.6-16.5); WHITE BLOOD COUNT 14.2 X10^3/uL (3.6-10.0)
[2024-08-08 06:33] LABS: ALANINE AMINOTRANSFERASE 26 Units/L (12-78); ALBUMIN 1.2 g/dL (3.4-5.0); ALKALINE PHOSPHATASE 199 Units/L (46-116); ASPARTATE AMINO TRANSFERASE 64 Units/L (15-37); BLOOD UREA NITROGEN 17 mg/dL (7-18); CALCIUM 8.6 mg/dL (8.5-10.1); CARBON DIOXIDE 23.6 mmol/L (21-32); CHLORIDE 102 mmol/L (98-107); COR CA(FOR HYPOALB) 10.8 mg/dL (8.5-10.1); CREATININE 0.71 mg/dL (0.55-1.02); GLUCOSE 59 mg/dL (65-99); MAGNESIUM 2.1 mg/dL (2.0-2.9); POTASSIUM 4.5 mmol/L (3.5-5.1); SODIUM 134 mmol/L (136-145); TOTAL PROTEIN 5.7 g/dL (6.4-8.2); eGFR NON BLACK RACES > 60 (>60)
--- NOTE | 2024-08-08 07:36 | NOTE.SOAP ---
Soap Note Note for Day of Date of Exam: 08/07/24 Subjective Data Subjective Data: Patient seen for a.m. rounds with daughter at bedside. Still very weak. Not much p.o. intake. White count still elevated but urine culture with no growth. Daughter and patient reports some diarrhea since being on the antibiotics. Vital stable with mild hypertension and some sinus tachycardia. Objective Data Objective Data: Thin, elderly female in no acute distress. Appears tired. Hearing intact to conversation, head NCAT, EOMI. Heart with sinus tachycardia. Lungs are clear. Speech is soft. Mood and affect are blunted. Able to move all extremities well but very weak in the legs. Assessment Assessment: 1. Generalized deconditioning. 2. Ruled out UTI. 3. Age-related dementia. Plan Plan: Plan for discharge to subacute rehab. Continue PT here. Decrease fluids to KVO to try to encourage p.o. intake.
--- NOTE | 2024-08-08 17:22 | NOTE.SOAP ---
Soap Note Note for Day of Date of Exam: 08/08/24 Subjective Data Subjective Data: Patient seen with daughter at bedside. Could not overnight. White count still slightly elevated with hemoglobin at 10 showing stable anemia. Blood pressure still soft at times but better overall. Still very weak. Not eating very well. Objective Data Objective Data: Thin, elderly female in no acute distress. Heart regular rate and rhythm. Lungs are clear. Bowel sounds present. Appears fatigued and tired. Assessment Assessment: 1. Generalized deconditioning. This combination of age and poor p.o. intake. Do recommend therapy. May consider an appetite stimulant. 2. UTI ruled out. Antibiotics stopped. Diarrhea seems to be slowing.
[2024-08-08] MEDS: TYLENOL 500 MG TAB EXTRA STRENGTH PO PRN (21:11)
[2024-08-09 05:57] LABS: BASOPHILS # (AUTO) 0.1 X10^3/uL (0.0-0.1); BASOPHILS % (AUTO) 0.3 % (0.2-1.0); EOSINOPHILS # (AUTO) 0.1 x10^3/uL (0.0-0.2); EOSINOPHILS % (AUTO) 0.3 % (0.9-2.9); HEMATOCRIT 27.2 % (36.0-47.0); HEMOGLOBIN 8.9 g/dL (12.0-16.0); LYMPHOCYTES # (AUTO) 0.7 X10^3/uL (1.3-2.9); LYMPHOCYTES % (AUTO) 3.5 % (21.0-51.0); MEAN CORPUSCULAR HEMOGLOBIN 28.6 pg (27.0-34.0); MEAN CORPUSCULAR HGB CONC 32.8 g/dL (33.0-35.0); MEAN CORPUSCULAR VOLUME 87.2 fL (80.0-100.0); MONOCYTES # (AUTO) 0.9 x10^3/uL (0.3-0.8); MONOCYTES % (AUTO) 4.6 % (0.0-13.0); NEUTROPHILS # (AUTO) 18.9 x10^3/uL (2.2-4.8); NEUTROPHILS % (AUTO) 91.3 % (42.0-75.0); PLATELET COUNT 160 X10^3/uL (150.0-450.0); RED BLOOD COUNT 3.12 X10^6/uL (3.5-5.4); RED CELL DISTRIBUTION WIDTH 14.7 % (11.6-16.5); WHITE BLOOD COUNT 20.6 X10^3/uL (3.6-10.0)
[2024-08-09 06:14] LABS: ALANINE AMINOTRANSFERASE 24 Units/L (12-78); ALBUMIN 0.9 g/dL (3.4-5.0); ALKALINE PHOSPHATASE 170 Units/L (46-116); ASPARTATE AMINO TRANSFERASE 95 Units/L (15-37); BLOOD UREA NITROGEN 24 mg/dL (7-18); CALCIUM 7.9 mg/dL (8.5-10.1); CARBON DIOXIDE 23.4 mmol/L (21-32); CHLORIDE 105 mmol/L (98-107); COR CA(FOR HYPOALB) 10.4 mg/dL (8.5-10.1); CREATININE 0.83 mg/dL (0.55-1.02); GLUCOSE 67 mg/dL (65-99); POTASSIUM 4.2 mmol/L (3.5-5.1); SODIUM 134 mmol/L (136-145); TOTAL PROTEIN 4.4 g/dL (6.4-8.2); eGFR NON BLACK RACES > 60 (>60)
[2024-08-09 06:42] LABS: BAND NEUTROPHILS % 9 % (0-10); PLATELET MORPHOLOGY COMMENT NORMAL (NORMAL)
--- NOTE | 2024-08-09 11:43 | RAD ---
EXAM: CHEST, 1 VIEW HISTORY: ELEVATED WBC, INCREASED TEMP.; COMPARISON: No relevant prior studies were available for comparison at the time of interpretation. TECHNIQUE: CHEST, 1 VIEW FINDINGS: Chest: Lines and tubes: Cardiac leads overlie the chest. Mediastinum: Cardiac and mediastinal shadow is within normal limits for size and contour. Pulmonary vessels: No pulmonary vascular congestion. Lung gleason: No suspicious airspace opacity. Pleura: There is blunting of the left costophrenic angle. No pneumothorax. Bones and soft tissues: No acute osseous or soft tissue abnormality. IMPRESSION: 1. Small left pleural effusion THIS IS AN ELECTRONICALLY VERIFIED FINAL REPORT 08/09/2024 11:40 AM - Electronically signed by Matt August MD
[2024-08-09] MEDS ORDERED: PHARMACY CONSULT - VANCOMYCIN XX SCH (14:00)
--- NOTE | 2024-08-09 14:04 | EKG ---
Test Reason : possible Afib Blood Pressure : */* mmHG Vent. Rate : 110 BPM Atrial Rate : * BPM P-R Int : * ms QRS Dur : 86 ms QT Int : 316 ms P-R-T Axes : * -5 67 degrees QTc Int : 427 ms Atrial fibrillation with rapid ventricular response Minimal voltage criteria for LVH, may be normal variant ( Harsha product ) Septal infarct , age undetermined Abnormal ECG No previous ECGs available Confirmed by Thomas Sanchez MD ([id number] on 08/09/2024 4:34:26 PM Referred By: Confirmed By: Thomas Sanchez MD
[2024-08-09 16:15] LABS: BILIRUBIN,URINE NEGATIVE (NEGATIVE); BLOOD/HEMOGLOBIN,URINE 5+ (NEGATIVE); GLUCOSE, URINE NEGATIVE (NEGATIVE); KETONES,URINE NEGATIVE (NEGATIVE); LEUKOCYTE ESTERASE ,URINE 3+ (NEGATIVE); NITRITES,URINE NEGATIVE (NEGATIVE); PROTEIN,URINE 3+ (NEGATIVE); UROBILINOGEN,URINE NORMAL (NORMAL)
[2024-08-09 16:38] LABS: APPEARANCE,URINE HAZY (CLEAR); COLOR,URINE YELLOW (YELLOW)
[2024-08-09 16:39] LABS: BACTERIA,URINE TRACE /HPF (NEGATIVE); RBC,URINE TNTC /HPF (0-3); SQUAMOUS EPITHELIAL CELL,UR FEW /HPF (NEGATIVE); YEAST,URINE MANY /HPF (NEGATIVE)
[2024-08-09] MEDS: ZOSYN VIAL 3.375 GRAMS 3.375 G in NS 100 ML IV 100 ML IV SCH (17:15)
[2024-08-09] MEDS: VANCOMYCIN IV *PREMIX 1 G/200 ML BAG 1 G/200 ML PIGGYBACK IV SCH (18:29)
[2024-08-10 05:58] LABS: HEMOGLOBIN 9.9 g/dL (12.0-16.0); LYMPHOCYTES # (AUTO) 0.6 X10^3/uL (1.3-2.9); MEAN CORPUSCULAR HEMOGLOBIN 28.7 pg (27.0-34.0); MEAN PLATELET VOLUME 9.2 fL (7.4-11.0); MONOCYTES # (AUTO) 1.2 x10^3/uL (0.3-0.8); PLATELET COUNT 147 X10^3/uL (150.0-450.0); RED BLOOD COUNT 3.46 X10^6/uL (3.5-5.4)
[2024-08-10 06:04] LABS: BASOPHILS % (AUTO) 0.2 % (0.2-1.0); EOSINOPHILS # (AUTO) 0.2 x10^3/uL (0.0-0.2); EOSINOPHILS % (AUTO) 0.7 % (0.9-2.9); HEMATOCRIT 30.3 % (36.0-47.0); LYMPHOCYTES % (AUTO) 3.1 % (21.0-51.0); MEAN CORPUSCULAR HGB CONC 32.8 g/dL (33.0-35.0); MEAN CORPUSCULAR VOLUME 87.7 fL (80.0-100.0); MONOCYTES % (AUTO) 5.6 % (0.0-13.0); NEUTROPHILS # (AUTO) 18.5 x10^3/uL (2.2-4.8); NEUTROPHILS % (AUTO) 90.4 % (42.0-75.0); RED CELL DISTRIBUTION WIDTH 15.2 % (11.6-16.5); WHITE BLOOD COUNT 20.5 X10^3/uL (3.6-10.0)
[2024-08-10 06:07] LABS: ALANINE AMINOTRANSFERASE 27 Units/L (12-78); ALKALINE PHOSPHATASE 199 Units/L (46-116); ASPARTATE AMINO TRANSFERASE 107 Units/L (15-37); BLOOD UREA NITROGEN 23 mg/dL (7-18); CALCIUM 8.1 mg/dL (8.5-10.1); CHLORIDE 104 mmol/L (98-107); COR CA(FOR HYPOALB) 10.5 mg/dL (8.5-10.1); CREATININE 0.73 mg/dL (0.55-1.02); GLUCOSE 64 mg/dL (65-99); POTASSIUM 4.1 mmol/L (3.5-5.1); SODIUM 135 mmol/L (136-145); eGFR NON BLACK RACES > 60 (>60)
[2024-08-10 06:44] LABS: BAND NEUTROPHILS % 2 % (0-10); PLATELET MORPHOLOGY COMMENT NORMAL (NORMAL)
--- NOTE | 2024-08-10 07:38 | NOTE.SOAP ---
Soap Note Note for Day of Date of Exam: 08/09/24 Subjective Data Subjective Data: Febrile overnight with continued weakness. HR still >90. WBCs at 20k. Anemia slightly worse. CXR with LEFT pleural effusion. Objective Data Objective Data: Thin, elderly female in no acute distress. Resting but easily awakened. Breathing shallow but lungs are clear. Heart regular rate and rhythm. Answers questions appropriately with a soft voice. Assessment Assessment: 1. SIRS with possible viral illness vs PNA. Starting Vanc/Zosyn for now. AIT throat swab. Repeat CXR in AM. 2. Generalized weakness. Needs to be OOB 6-8hrs/day. Continue therapy. Plan Plan: Starting broad-spectrum antibiotics, obtaining cultures, rechecking UA. Stopping plans for discharge to rehab at this time. If no improvement over 48 hours the daughters have had a discussion about taking her home on hospice care.
[2024-08-10] MEDS: NS 250 ML IV 250 ML IV ONE (07:45)
--- NOTE | 2024-08-10 08:33 | RAD ---
EXAM:Portable chestHISTORY:LeukocytosisCOMPARISON:10/2024FINDINGS:Heart size is normal. [place] are normal. Aorta is calcified. Lungs are well inflated and free of acute alveolar infiltrates and areas of consolidation. Chronic appearing interstitial lung changes are present and stable. Blunting of the left costophrenic angle could be due to a small pleural effusion or pleural fibrosis. It was unchanged from the prior examination. Bony thorax is unremarkable.IMPRESSION:No significant change from the prior examinationTHIS IS AN ELECTRONICALLY VERIFIED FINAL REPORT08/10/2024 8:30 AM - Electronically signed by Sam Barriga MD
[2024-08-10] MEDS: PERIACTIN TAB 4 MG PO SCH (09:37)
--- NOTE | 2024-08-10 12:48 | NOTE.SOAP ---
Soap Note Note for Day of Date of Exam: 08/10/24 Subjective Data Subjective Data: White count stable. Hemoglobin stable. New thrombocytopenia. Still with poor appetite per daughter at bedside. Was not out of bed much yesterday. Culture showing yeast. Objective Data Objective Data: Elderly female in no acute distress. Easily awakened but quick to fall asleep. Heart regular rate and rhythm. Shallow respirations with referred upper airway noises but otherwise clear. Bowel sounds are present with belly being soft and nontender. Assessment Assessment: 1. SIRS with possible viral illness vs PNA. Starting Vanc/Zosyn for now. AIT throat swab. Repeat CXR in AM. 2. Generalized weakness. Needs to be OOB 6-8hrs/day. Continue therapy. 3. UTI due to yeast. Continue bank and Zosyn for now. Add on Diflucan IV. 4. Poor appetite. Starting Periactin orally. Plan Plan: Continue broad-spectrum antibiotics, AIT culture still pending, starting antifungal. Will have a discussion tomorrow with daughters about continued care here versus referral home for hospice care.
[2024-08-10] MEDS: DIFLUCAN 100 MG IV (MIX by PHARMACY)* 100 MG/50 ML BAG IV SCH (13:04)
[2024-08-11 00:50] LABS: CREATININE 0.78 mg/dL (0.55-1.02)
[2024-08-11 00:54] LABS: VANCOMYCIN,TROUGH 21.7 ug/mL (15-20)
[2024-08-11 07:01] LABS: BASOPHILS # (AUTO) 0.1 X10^3/uL (0.0-0.1); BASOPHILS % (AUTO) 0.5 % (0.2-1.0); EOSINOPHILS # (AUTO) 0.1 x10^3/uL (0.0-0.2); EOSINOPHILS % (AUTO) 0.5 % (0.9-2.9); HEMATOCRIT 31.7 % (36.0-47.0); HEMOGLOBIN 10.5 g/dL (12.0-16.0); LYMPHOCYTES # (AUTO) 0.7 X10^3/uL (1.3-2.9); LYMPHOCYTES % (AUTO) 3.3 % (21.0-51.0); MEAN CORPUSCULAR HGB CONC 33.1 g/dL (33.0-35.0); MEAN CORPUSCULAR VOLUME 87.6 fL (80.0-100.0); MEAN PLATELET VOLUME 9.1 fL (7.4-11.0); MONOCYTES # (AUTO) 1.1 x10^3/uL (0.3-0.8); MONOCYTES % (AUTO) 5.6 % (0.0-13.0); NEUTROPHILS # (AUTO) 18.2 x10^3/uL (2.2-4.8); NEUTROPHILS % (AUTO) 90.1 % (42.0-75.0); PLATELET COUNT 168 X10^3/uL (150.0-450.0); RED BLOOD COUNT 3.61 X10^6/uL (3.5-5.4); RED CELL DISTRIBUTION WIDTH 15.1 % (11.6-16.5); WHITE BLOOD COUNT 20.2 X10^3/uL (3.6-10.0)
[2024-08-11 07:17] LABS: ALANINE AMINOTRANSFERASE 28 Units/L (12-78); ALBUMIN 1.1 g/dL (3.4-5.0); ALKALINE PHOSPHATASE 224 Units/L (46-116); ASPARTATE AMINO TRANSFERASE 104 Units/L (15-37); BLOOD UREA NITROGEN 23 mg/dL (7-18); CALCIUM 8.4 mg/dL (8.5-10.1); CARBON DIOXIDE 24.3 mmol/L (21-32); CHLORIDE 105 mmol/L (98-107); COR CA(FOR HYPOALB) 10.7 mg/dL (8.5-10.1); CREATININE 0.89 mg/dL (0.55-1.02); POTASSIUM 3.8 mmol/L (3.5-5.1); SODIUM 137 mmol/L (136-145); TOTAL PROTEIN 5.4 g/dL (6.4-8.2); eGFR NON BLACK RACES > 60 (>60)
[2024-08-11 07:27] LABS: GLUCOSE 42 mg/dL (65-99)
[2024-08-11] MEDS: D50W ABBOJECT SYR IV ONE (07:38)
[2024-08-11 07:50] LABS: BAND NEUTROPHILS % 8 % (0-10); PLATELET MORPHOLOGY COMMENT NORMAL (NORMAL)
[2024-08-11] MEDS: VANCOMYCIN HCL 750 MG VIAL 750 MG in D5W 250 ML IV 250 ML IV SCH (08:47)
--- NOTE | 2024-08-11 08:59 | RAD ---
EXAM:CHEST, 1 VIEWHISTORY:PNEUMONIA ;COMPARISON:08/10/2024FINDINGS:The cardiomediastinal silhouette is stable. Similar contour the left costophrenic angle.No acute airspace disease. No pneumothorax or effusion.No acute osseous abnormality.IMPRESSION:No acute cardiopulmonary disease.THIS IS AN ELECTRONICALLY VERIFIED FINAL REPORT08/11/2024 8:55 AM - Electronically signed by Sam Barriga MD
[2024-08-11] MEDS: PHARMACY COMMENT IV NR (10:21)
[2024-08-11] MEDS: NS 250 ML IV 250 ML IV ONE (10:21)
[2024-08-11 12:53] VITALS: TEMP 97.8
[2024-08-11 16:19] VITALS: BP 158/89; PULSE 90; RESP 17; O2SAT 95
[2024-08-12] MEDS ORDERED: PHARMACY COMMENT IV ONE (21:00)
--- NOTE | 2024-08-14 10:01 | PCM.DCPLAN ---
DISCHARGE SUMMARY Admission Date Date of Admission: 08/03/24 Discharge Date Discharge Date: 08/11/24 Admission Diagnoses (1) Acute UTI: Status: Acute (2) Altered mental status: Status: Resolved (3) Sepsis: Status: Ruled-out (4) Physical deconditioning: Status: Acute (5) Moderate dementia: Status: Acute (6) Adult failure to thrive: Status: Acute Discharge Medications Discharge Medications: Home Medication List aspirin 81 mg tablet,delayed release 81 mg PO QDAY 08/03/24 [History] ciprofloxacin HCl 250 mg tablet 250 mg PO QPM 08/03/24 [History] Prescriptions: Hospital Course Vital Signs: Vital Signs Temperature 97.8 F Temperature 98.7 F Pulse Rate [Brachial] 101 Pulse Rate [Brachial] 122 Respiratory Rate 19 Respiratory Rate 18 Blood Pressure [Right Arm] 126/77 Blood Pressure [Right Arm] 123/81 O2 Sat by Pulse Oximetry 97 O2 Sat by Pulse Oximetry 96 Latest Lab Results: Laboratory Last Values WBC 20.2 X10^3/uL (3.6-10.0) H 08/11/24 06:38 RBC 3.61 X10^6/uL (3.5-5.4) 08/11/24 06:38 Hgb 10.5 g/dL (12.0-16.0) L 08/11/24 06:38 Hct 31.7 % (36.0-47.0) L 08/11/24 06:38 MCV 87.6 fL (80.0-100.0) 08/11/24 06:38 MCH 29.0 pg (27.0-34.0) 08/11/24 06:38 MCHC 33.1 g/dL (33.0-35.0) 08/11/24 06:38 RDW 15.1 % (11.6-16.5) 08/11/24 06:38 Plt Count 168 X10^3/uL (150.0-450.0) 08/11/24 06:38 Plt Count Comment Adequate (ADEQUATE) 08/11/24 06:38 Plt Count Comment Cancelled 08/11/24 06:38 MPV 9.1 fL (7.4-11.0) 08/11/24 06:38 Neut % (Auto) 90.1 % (42.0-75.0) H 08/11/24 06:38 Lymph % (Auto) 3.3 % (21.0-51.0) L 08/11/24 06:38 [place] % (Auto) 5.6 % (0.0-13.0) 08/11/24 06:38 Eos % (Auto) 0.5 % (0.9-2.9) L 08/11/24 06:38 Baso % (Auto) 0.5 % (0.2-1.0) 08/11/24 06:38 Neut # (Auto) 18.2 x10^3/uL (2.2-4.8) H 08/11/24 06:38 Lymph # (Auto) 0.7 X10^3/uL (1.3-2.9) L 08/11/24 06:38 [place] # (Auto) 1.1 x10^3/uL (0.3-0.8) H 08/11/24 06:38 Eos # (Auto) 0.1 x10^3/uL (0.0-0.2) 08/11/24 06:38 Baso # (Auto) 0.1 X10^3/uL (0.0-0.1) 08/11/24 06:38 Absolute Nucleated RBC 0.0 /100WBC 08/11/24 06:38 Total Counted 100 08/11/24 06:38 Total Counted Cancelled 08/11/24 06:38 Neutrophils % (Manual) 89 % (39-76) H 08/11/24 06:38 Neutrophils % (Manual) Cancelled 08/11/24 06:38 Band Neutrophils % 8 % (0-10) 08/11/24 06:38 Band Neutrophils % Cancelled 08/11/24 06:38 Lymphocytes % (Manual) 1 % (13-43) L 08/11/24 06:38 Lymphocytes % (Manual) Cancelled 08/11/24 06:38 Monocytes % (Manual) 2 % (4-9) L 08/11/24 06:38 Monocytes % (Manual) Cancelled 08/11/24 06:38 Eosinophils % (Manual) Cancelled 08/11/24 06:38 Basophils % (Manual) Cancelled 08/11/24 06:38 Metamyelocytes % Cancelled 08/11/24 06:38 Myelocytes % Cancelled 08/11/24 06:38 Promyelocytes % Cancelled 08/11/24 06:38 Nucleated RBCs Cancelled 08/11/24 06:38 Atypical Lymphocytes Cancelled 08/11/24 06:38 Blast Cells Cancelled 08/11/24 06:38 Smudge Cells Cancelled 08/11/24 06:38 Toxic Granulation Cancelled 08/11/24 06:38 Dohle Bodies Cancelled 08/11/24 06:38 Jerson Rods Cancelled 08/11/24 06:38 Plt Clumps, EDTA Cancelled 08/11/24 06:38 Giant Platelets Cancelled 08/11/24 06:38 Plt Morphology Comment Cancelled 08/11/24 06:38 Plt Morphology Comment Normal (NORMAL) 08/11/24 06:38 RBC Morphology Cancelled 08/11/24 06:38 RBC Morphology Normal (NORMAL) 08/11/24 06:38 Dimorphic RBCs Cancelled 08/11/24 06:38 Polychromasia Cancelled 08/11/24 06:38 Hypochromasia Cancelled 08/11/24 06:38 Poikilocytosis Cancelled 08/11/24 06:38 Basophilic Stippling Cancelled 08/11/24 06:38 Anisocytosis Cancelled 08/11/24 06:38 Microcytosis Cancelled 08/11/24 06:38 Macrocytosis Cancelled 08/11/24 06:38 Spherocytes Cancelled 08/11/24 06:38 Pappenheimer Bodies Cancelled 08/11/24 06:38 Sickle Cells Cancelled 08/11/24 06:38 Target Cells Cancelled 08/11/24 06:38 Tear Drop Cells Cancelled 08/11/24 06:38 Ovalocytes Cancelled 08/11/24 06:38 Stomatocytes Cancelled 08/11/24 06:38 Helmet Cells Cancelled 08/11/24 06:38 [place] Bodies Cancelled 08/11/24 06:38 Timber Rings Cancelled 08/11/24 06:38 Zi Cells Cancelled 08/11/24 06:38 Crenated Cell Cancelled 08/11/24 06:38 Acanthocytes (Spur) Cancelled 08/11/24 06:38 Rouleaux Cancelled 08/11/24 06:38 Schistocytes Cancelled 08/11/24 06:38 Sodium 137 mmol/L (136-145) 08/11/24 06:38 Corrected Sodium TNP 08/11/24 06:38 Potassium 3.8 mmol/L (3.5-5.1) 08/11/24 06:38 Chloride 105 mmol/L (98-107) 08/11/24 06:38 Carbon Dioxide 24.3 mmol/L (21-32) 08/11/24 06:38 BUN 23 mg/dL (7-18) H 08/11/24 06:38 Creatinine 0.89 mg/dL (0.55-1.02) 08/11/24 06:38 Est GFR (MDRD) Af Amer > 60 (>60) 08/11/24 06:38 Est GFR (MDRD) Non-Af > 60 (>60) 08/11/24 06:38 Glucose 42 mg/dL (65-99) L* 08/11/24 06:38 POC Glucose (mg/dL) 89 mg/dL (65-99) 08/11/24 08:46 Calcium 8.4 mg/dL (8.5-10.1) L 08/11/24 06:38 Corrected Calcium 10.7 mg/dL (8.5-10.1) H 08/11/24 06:38 Magnesium 2.1 mg/dL (2.0-2.9) 08/08/24 05:20 Total Bilirubin 0.80 mg/dL (0.2-1.0) 08/11/24 06:38 AST 104 Units/L (15-37) H 08/11/24 06:38 ALT 28 Units/L (12-78) 08/11/24 06:38 Alkaline Phosphatase 224 Units/L (46-116) H 08/11/24 06:38 Troponin I High Sens 9.4 ng/L (4.0-60.0) 08/03/24 12:05 Total Protein 5.4 g/dL (6.4-8.2) L 08/11/24 06:38 Albumin 1.1 g/dL (3.4-5.0) L 08/11/24 06:38 Globulin 4.3 g/dL (2.5-4.5) 08/11/24 06:38 Albumin/Globulin Ratio 0.3 Ratio (1.1-2.1) L 08/11/24 06:38 Specimen Type Catherized urine 08/09/24 15:20 Urine Color Yellow (YELLOW) 08/09/24 15:20 Urine Appearance Hazy (CLEAR) 08/09/24 15:20 Urine pH 6.0 (5.0 - 8.0) 08/09/24 15:20 Ur Specific [place] 1.020 (1.000-1.030) 08/09/24 15:20 Urine Protein 3+ (NEGATIVE) 08/09/24 15:20 Urine Glucose (UA) Negative (NEGATIVE) 08/09/24 15:20 Urine Ketones Negative (NEGATIVE) 08/09/24 15:20 Urine Blood 5+ (NEGATIVE) 08/09/24 15:20 Urine Nitrite Negative (NEGATIVE) 08/09/24 15:20 Urine Bilirubin Negative (NEGATIVE) 08/09/24 15:20 Urine Urobilinogen Normal (NORMAL) 08/09/24 15:20 Ur Leukocyte Esterase 3+ (NEGATIVE) 08/09/24 15:20 Urine RBC Tntc /HPF (0-3) A 08/09/24 15:20 Urine WBC 3-5 /HPF (0-5) 08/09/24 15:20 Ur Squamous Epith Cells Few /HPF (NEGATIVE) 08/09/24 15:20 Urine Bacteria Trace /HPF (NEGATIVE) 08/09/24 15:20 Urine Mucus Many /HPF (NEGATIVE) 08/09/24 15:20 Urine Yeast Many /HPF (NEGATIVE) 08/09/24 15:20 Ur Culture Indicated? Yes/culture set up 08/09/24 15:20 Vancomycin Trough 21.7 ug/mL (15-20) H* 08/10/24 23:55 Hospital Course: Patient admitted to the hospital with 1 month of worsening status at home with poor p.o. intake. Found to be dehydrated and concern for UTI. Original urine cultures did not grow anything. Repeat did grow yeast and patient was started on IV fluconazole. Original IV Cipro was stopped after cultures returned negative. Patient was originally set up to go to rehab but Due to worsening overall status. She had very poor p.o. intake, continued leukocytosis, and worsening weakness. After further discussion with family, patient was sent home on home hospice. She was placed on hospice due to adult failure to thrive secondary to dementia, UTI, and advanced age.
== END 2024-08-11 17:18 | disposition hospice, home (50) | DRG 758 ==
LOC: ER 11:12 → MED/SURG 11:12
PROVIDERS: ADMIT Family Medicine; ATTEND Family Medicine